=== PATIENT | female | born 1950 | race Caucasian/White ===

== ENCOUNTER 2021-10-08 11:37 | Outpatient (CLI) | payer MEDICARE, OTHER | END 2021-10-08 11:38 | disposition home or self-care (01) | LOC: CSHRAD 11:37 | PROVIDERS: ATTEND Family Medicine | DX: S43.102A Unspecified dislocation of left acromioclavicular joint, initial encounter (principal); S42.002A Fracture of unspecified part of left clavicle, initial encounter for closed fracture; S22.42XA Multiple fractures of ribs, left side, initial encounter for closed fracture ==

== ENCOUNTER 2021-10-16 16:30 | Outpatient (CLI) | payer MEDICARE, OTHER | END 2021-10-16 16:31 | disposition home or self-care (01) | LOC: CSHRAD 16:30 | PROVIDERS: ATTEND Family Medicine | DX: M54.50 Low back pain, unspecified (principal); Z11.1 Encounter for screening for respiratory tuberculosis; Z91.81 History of falling; M47.816 Spondylosis without myelopathy or radiculopathy, lumbar region; S32.010A Wedge compression fracture of first lumbar vertebra, initial encounter for closed fracture; S42.032D Displaced fracture of lateral end of left clavicle, subsequent encounter for fracture with routine healing; S22.5XXD Flail chest, subsequent encounter for fracture with routine healing | CPT/HCPCS: 71046; 72100 ==